=== PATIENT | female | born 1975 | race Hispanic/Latino ===

== ENCOUNTER 2022-07-08 14:18 | Emergency (ER) | payer OTHER ==
[~2022-07-08] VITALS: Ht 149.9 cm; Wt 138.3 kg
[2022-07-08 14:23] VITALS: BP 120/65
[2022-07-08] MEDS ORDERED: IBUPROFEN 600 MG TABLET PO SCH (14:39)
[2022-07-08] MEDS ORDERED: IBUPROFEN 600 MG TABLET ONE (15:06)
[2022-07-08] MEDS ORDERED: NAPR375T6 PO (16:36)
== END 2022-07-08 17:12 | disposition home or self-care (01) ==
LOC: EDH 14:18
DX: S86.911A Strain of unspecified muscle(s) and tendon(s) at lower leg level, right leg, initial encounter (principal); I10 Essential (primary) hypertension; E11.9 Type 2 diabetes mellitus without complications; W01.0XXA Fall on same level from slipping, tripping and stumbling without subsequent striking against object, initial encounter; Y93.89 Activity, other specified; Y92.89 Other specified places as the place of occurrence of the external cause; Y99.8 Other external cause status
CPT/HCPCS: 73562; 81025

== ENCOUNTER 2022-08-05 21:43 | Emergency (ER) | payer OTHER ==
[~2022-08-05] VITALS: Ht 149.9 cm; Wt 137.0 kg
[~2022-08-05 21:43] MED LIST: NAPR375T6 PO
[2022-08-05 22:02] VITALS: BP 127/75
[2022-08-05] MEDS ORDERED: TRAMADOL HCL 50 MG TABLET PO ONE (22:30)
[2022-08-05] MEDS ORDERED: NAPR-1192 PO (22:37)
[2022-08-05] MEDS ORDERED: TRAMADOL HCL 50 MG TABLET ONE (22:45)
== END 2022-08-05 23:02 | disposition home or self-care (01) ==
LOC: EDH 21:43
DX: M25.561 Pain in right knee (principal); E11.9 Type 2 diabetes mellitus without complications; I10 Essential (primary) hypertension; Z79.1 Long term (current) use of non-steroidal anti-inflammatories (NSAID); W18.2XXA Fall in (into) shower or empty bathtub, initial encounter; Y93.E1 Activity, personal bathing and showering; Y92.89 Other specified places as the place of occurrence of the external cause; Y99.8 Other external cause status
CPT/HCPCS: 73562

== ENCOUNTER → 2022-08-21 | Outpatient (CLI) | payer OTHER ==
[~2022-08-21] MED LIST changes: +NAPR-1192 PO
== END | disposition home or self-care (01) ==
LOC: RAH 09:34
PROVIDERS: ATTEND Student in an Organized Health Care Education/Training Program
DX: M17.11 Unilateral primary osteoarthritis, right knee (principal); M23.91 Unspecified internal derangement of right knee; M25.861 Other specified joint disorders, right knee
CPT/HCPCS: 73721